=== PATIENT | female | born 1965 | race African-American/Black ===

== ENCOUNTER → 2019-04-30 15:11 | Outpatient (CLI) | payer OTHER, SELFPAY ==
--- NOTE | ~2019-04-30 | XR_ITS ---
EXAMINATION: XR knee RT 3V DATE: 04/30/2019 15:35 INDICATION: Right knee pain TECHNIQUE: Three views of the right knee were obtained. COMPARISON: None. FINDINGS: There is subtle lateral subluxation of the patella. No fracture is identified. There is mil d tricompartmental osteoarthritis. No joint effusion/synovitis. Soft tissues are unremarkable. IMPRESSION: 1. Mild osteoarthritis without acute abnormality. Reviewed, dictated and finalized at location A.
--- NOTE | ~2019-04-30 | XR_ITS ---
EXAMINATION: XR knee LT 3V DATE: 04/30/2019 15:35 INDICATION: Left knee pain. TECHNIQUE: 3 views of left knee were obtained. COMPARISON: None. FINDINGS: There is lateral subluxation of patella. No fracture. There is mild tricompartmental osteoa rthritis. No knee joint effusion. IMPRESSION: 1. Mild left knee osteoarthritis. Reviewed, dictated and finalized at location A.
== END ==
PROVIDERS: PCP Family Medicine; Visit Provider Physician Assistant
DX: M17.0 Bilateral primary osteoarthritis of knee (principal)
CPT/HCPCS: 73562

== ENCOUNTER → 2020-09-08 17:50 | Outpatient (CLI) | payer OTHER, SELFPAY ==
--- NOTE | ~2020-09-08 | MM_ITS ---
EXAMINATION: MM screening betty BI w varsha HISTORY: Screening TECHNIQUE: Craniocaudal and mediolateral oblique 3-D tomosynthesis images were obtained and synthetic 2-D images were generated. CAD analysis was submitted and interpreted. COMPARISON: Comparison to multiple prior studies sequentially, with oldest reviewed study dated 01/10. BREAST PARENCHYMAL COMPOSITION: The breasts are almost entirely fatty. FINDINGS: There is no evidence of suspicious mass, calcification, or architectural distortion to sugg est malignancy in either breast. There has been no suspicious interval change. IMPRESSION: 1. No mammographic evidence of malignancy. 2. Recommend routine screening mammography in one year. BI-RADS Category 1: Negative Reviewed, dictated and finalized at location A.
--- NOTE | ~2020-09-08 | DEXA_ITS ---
Bone Density Report Name: April Gonzalez Age: 55 Sex: Female Ethnicity: White Date of : 1965 Indication: postmenopausal; screening for osteoporosis; height loss; Referring Provider: Asia Chandler Study: Bone densitometry was performed. Exam Date: September 08, 2020 Accession number: [id number] Bone Density: Region BMD T-score Z-score Classification AP Spine (L1-L4) 1.321 2.5 3.6 Normal Femoral Neck (Left) 1.019 1.5 2.6 Normal Total Hip (Left) 1.078 1.1 1.8 Normal Femoral Neck (Right) 0.993 1.3 2.4 Normal Total Hip (Right) 1.043 0.8 1.5 Normal Total Hip Mean 1.061 1.0 1.7 Normal World Health Organization criteria for BMD impression classify patients as: Normal (T-score at or above -1.0), Osteopenia (T-score between -1.0 and -2.5), or Osteoporosis (T-score at or below -2.5). 10-year Fracture Risk: FRAX not reported because: All T-scores for Spine Total, Hip Total, Femoral Neck at or above -1.0 Clinical Information Provided by Patient: Patient maximum height was 68.5 Menopause Age: 50 Drinks caffeinated beverages Onset of menses at age 12 Number of children 3 Impression: The patient has normal bone mass. Discussion: BONE DENSITY IS ABOVE THE MINIMUM DESIRABLE LEVEL AT ALL SKELETAL SITES TESTED. This patient?s bone mineral density is above the minimum desirable level (T-score -1.0 or better) at all sites measured. The patient should follow a healthful lifestyle (good nutrition with adequate calcium and vitamin D, and appropriate weight-bearing exercise). Follow-Up: Consider repeating this study in 5 years or sooner if there is some new clinical indication. Reported by: CORY on 09/08/2020 7:06:00 PM. Reviewed, dictated and finalized at location AMagda VENEGAS
== END ==
PROVIDERS: PCP Family Medicine; Visit Provider Physician Assistant
DX: Z12.31 Encounter for screening mammogram for malignant neoplasm of breast (principal); Z78.0 Asymptomatic menopausal state
CPT/HCPCS: 77063; 77067; 77080

== ENCOUNTER 2020-10-10 17:00 | Outpatient (RCR) | payer OTHER, SELFPAY ==
--- NOTE | 2020-09-19 11:14 | PTOPEVAL ---
Thank you for referring April Gonzalez to [facility][Note 3].? The patient is scheduled to be seen for therapy?2 x/week for 8 weeks. Please review, sign, date and return this plan of care MARVIN. I agree with and certify that the following plan of care is medically necessary. Referring Physician Date Attending Provider: TERRY Damian Diagnosis love knee pain Onset 2019 Additional Evaluation Detail She has received previous therapy in 2019. She is riding a bike at home for 1 hr. No other exercises performed. She is a teacher at [employer]. She has increased pain with standing task. x-ray: right knee reveal moderate to severe lateral compartment DJD with osteophyte formation and valgus deformity. Mild to moderate medial compartment DJD with osteophyte formation and mild patellofemoral compartment DJD noted. Subjective Information She is limited with household Query Text:As Reported By Patient/ chores due to limited ability Family to perform lifting and squating. She has difficulty with transfers from all surfaces. She c/o difficulty with walking, negotiating steps, prolonged standing. She also c /o back stiffness causing increased difficulty with transfers. Reports she has a history of falls due to right leg giving out with activities. She recently received an injection in her right knee. Diagnostic Tests X-Rays For This Problem Yes Previous Treatments Previous Treatments For This Problem yes for PT and chiropractor care Pain Assessment Self Report Pain Assessment Left Knee(s) Reported Pain Level 1 Pain Description Sharp Pain Frequency Chronic Lowest Pain Intensity 1 Greatest Pain Intensity 3 Pain Aggravating Factors ADL's,Bending,Exercise/ Activity,Lifting,Prolonged Position,Stair Climbing,
--- NOTE | 2020-10-12 07:47 | PCPTNOTE ---
Patient called & cancelled scheduled appointment this date due to work schedule. She also cancelled her re-eval visit next week.
--- NOTE | 2020-11-06 09:25 | PCPTNOTE ---
Admitting Provider: Attending Provider: TERRY Damian Patient:April Gonzalez Date of :1965 Discharge Note Patient has not returned for any further treatments since 10/10/2020, therefore she will be discharged at this time. Patient?s initial visit was on 09/19/2020 09:30 and she had a total of 6 visits. The goals have been not met at this time. Thank you for referring this patient to [facility]. Please review, sign, date and return this discharge summary MARVIN. I have been updated about the patient's current status and I agree with discharge from the above service at this time. Referring Physician Date
== END 2020-11-06 16:49 | disposition home or self-care (01) ==
LOC: ANHPT 17:00
PROVIDERS: PCP Family Medicine; Visit Provider Nurse Practitioner Family
DX: M17.0 Bilateral primary osteoarthritis of knee (principal); M25.561 Pain in right knee; M25.562 Pain in left knee; M54.31 Sciatica, right side
CPT/HCPCS: 97014; 97110; 97112; 97162; 97530; G0283

== ENCOUNTER → 2020-12-19 08:23 | Outpatient (CLI) | payer OTHER, SELFPAY ==
--- NOTE | ~2020-12-19 | MR_ITS ---
EXAMINATION: MR lumbar spine wo con DATE: 12/19/2020 09:05 INDICATION: Low back pain. TECHNIQUE: Magnetic resonance imaging (MRI) of the lumbar spine was performed without intravenous con trast. Sequences included sagittal T2-weighted FSE, sagittal T2-weighted FS FSE, sagittal T1-weighted FSE, and axial T2-weighted FSE. COMPARISON: CT abdomen and pelvis 08/02/2011 FINDINGS: There is 9 degrees dextrocurvature of thoracolumbar spine. There is mild chronic anterior w edging of T11 and T12 vertebral bodies. There is severely decreased disc height at T11-T12. The dista l spinal cord signal intensity is normal. The conus medullaris is at L1. Partially visualized are hem angiomas in the liver. There is a chronic 2.1 m mass in right adrenal gland, likely an adenoma. The f ollowing disc levels are specifically discussed: T11-T12: The disc is bulging. There is moderate right and mild left facet joint osteoarthritis. There is mild bilateral neural foraminal stenosis. There is mild central canal stenosis. T12-L1: The disc does not extend beyond the endplate margin. There is mild right facet joint osteoart hritis. There is no neural foraminal stenosis. There is no central canal stenosis. L1-L2: The disc does not extend beyond the endplate margin. There is severe bilateral facet joint ost eoarthritis. There is no neural foraminal stenosis. There is no central canal stenosis. L2-L3: The disc does not extend beyond the endplate margin. There is severe bilateral facet joint ost eoarthritis. There is mild right neural foraminal stenosis. There is no central canal stenosis. L3-L4: The disc is bulging. There is severe bilateral facet joint osteoarthritis. There is mild bilat eral neural foraminal stenosis. There is no central canal stenosis. L4-L5: The disc is bulging and has an annular fissure. There is severe bilateral facet joint osteoart hritis. There is mild bilateral neural foraminal stenosis. There is mild central canal stenosis. L5-S1: There is a right foraminal protrusion. There is severe bilateral facet joint osteoarthritis. T here is moderate right and mild left neural foraminal stenosis. There is no central canal stenosis. IMPRESSION: 1. Mild lumbar spondylosis and severe lower thoracic spondylosis. Reviewed, dictated and finalized at location A. [employer]
== END ==
PROVIDERS: PCP Family Medicine; Visit Provider Nurse Practitioner Family
DX: M47.815 Spondylosis without myelopathy or radiculopathy, thoracolumbar region (principal); M48.05 Spinal stenosis, thoracolumbar region; M47.817 Spondylosis without myelopathy or radiculopathy, lumbosacral region; M48.07 Spinal stenosis, lumbosacral region
CPT/HCPCS: 72148

== ENCOUNTER 2021-01-26 16:40 | Outpatient (CLI) | payer OTHER, SELFPAY ==
--- NOTE | ~2021-01-26 | US_ITS ---
EXAMINATION: US thyroid DATE: 01/26/2021 17:24 INDICATION: Nontoxic multinodular goiter. TECHNIQUE: Multiple ultrasound images of the thyroid were obtained. COMPARISON: Ultrasound 07/24/2018, 04/11/2015, 09/05/17 FINDINGS: The right thyroid lobe measures 5.0 x 2.0 x 2.1 cm. The left thyroid lobe measures 5.3 x 1.9 x 2.4 c m. The thyroid demonstrates heterogeneous echogenicity. In the right thyroid lobe, there is an 8 mm p redominantly cystic nodule (TI-RADS TR1). In the right thyroid lobe, there is a 1.7 cm solid, hypoech oic, czzmh-kyip-crmj nodule with ill-defined margin without echogenic foci (TR4). In the left thyroid lobe, there is a 2.5 cm solid, hypoechoic, jhhlf-mbza-hxax nodule with ill-defined margin without ec hogenic foci (TR4) that demonstrated benign pathology at fine-needle aspiration on 12/22/2017. In the left thyroid lobe, there is a 2.1 cm mixed cystic and solid, hypoechoic, gckva-dcun-amnn nodule with lobular margin without echogenic foci (TR4). IMPRESSION: 1. Multinodular goiter, stable from 09/05/2017 considering differences in technique. Consider thyroid ultrasound in 2 years. Reviewed, dictated and finalized at location A. [employer] IMPRESSION: 1. Multinodular goiter, stable from 09/05/2017 considering differences in techni que. Consider thyroid ultrasound in 2 years.
== END 2021-01-26 16:41 | disposition home or self-care (01) ==
PROVIDERS: PCP Family Medicine; Visit Provider Family Medicine
DX: E04.2 Nontoxic multinodular goiter (principal)
CPT/HCPCS: 76536

== ENCOUNTER → 2021-09-07 08:57 | Outpatient (CLI) | payer SELFPAY ==
--- NOTE | ~2021-09-07 | MR_ITS ---
EXAMINATION: MR abdomen wo/w con INDICATION: Liver lesions TECHNIQUE: Coronal SSFSE ARC, WATER:coronal LAVA-FLEX, Coronal 2D FIESTA FatSat, Axial SSFSE BH ARC, Axial 3D DualEcho BH, Axial SSFSE-IR, Axial DWI b=500, Axial 2D FIESTA FatSat, pre and dynamic postco ntrast Axial LAVA ARC, postcontrast Coronal In and Opposed phase LAVA FLEX COMPARISON: CT, 08/02/2011 CONTRAST: Multihance, 20 cc FINDINGS: There are at least five T1 hypointense, T2 hyperintense masses of the liver which demonstra te interrupted peripheral nodular enhancement with gradual centripetal filling on progressive postcon trast images, consistent with hemangiomas. The largest is a 7.9 x 6.0 cm mass in liver segment VIII. There are a few small flash filling hemangiomas. No suspicious liver mass is identified. The spleen, pancreas, gallbladder, and left adrenal gland are normal. There is a 2 cm adenoma of the right adrena l gland. The kidneys are unremarkable. There are no pathologically enlarged abdominal lymph nodes. Th ere are no dilated loops of bowel. IMPRESSION: 2. Multiple liver hemangiomas. Reviewed, dictated and finalized at location L.
[2021-09-13 11:10] LABS: Estimated Glomerular Filt Rate > 60
== END ==
PROVIDERS: PCP Family Medicine; Visit Provider Nurse Practitioner
DX: D18.03 Hemangioma of intra-abdominal structures (principal)
CPT/HCPCS: 99199; 36415; 74183; 82565; A9577

== ENCOUNTER 2022-09-02 12:52 | Outpatient (CLI) | payer OTHER, SELFPAY ==
--- NOTE | 2022-09-02 12:56 | ECHO_ITS ---
Patient Info Name: April Gonzalez Age: 57 years : 1965 Gender: Female Ht: 68 in Wt: 232 lbs BSA: 2.29 m2 HR: 80 bpm BP: 133 / 92 mmHg Heart Rhythm: Sinus Rhythm Technical Quality: Good Exam Date: 09/02/2022 1:13 PM Exam Location: [facility] Patient Status: Outpatient Admit Date: 09/02/2022 Staff Ordering Physician: Jaylin Ortiz PA-C Hand Ii Cutter: Kathy Rojas RDCS Attending Provider: Jaylin Ortiz PA-C Referring Physician: Diana AARON; Exam Type: CA echo doppler color flow Study Info Indications R01.1 - Cardiac murmur, unspecified Complete two-dimensional, color flow and Doppler transthoracic echocardiogram is performed. Summary 1. Complete two-dimensional, color flow and Doppler transthoracic echocardiogram is performed. 2. Left ventricular chamber dimension is normal. 3. Left ventricular systolic function is normal, estimated at 60-65%. 4. The left ventricular diastolic function is grade II diastolic dysfunction. 5. E/e' 10 is mildly elevated. 6. Left atrial chamber dimension is mildly enlarged. 7. There is moderate aortic valve sclerosis. 8. There is moderate to severe aortic valve stenosis with a peak velocity of 314 cm/s, mean gradient of 19 mmHg, and aortic valve area of 0.9 cm2. 9. There is mild aortic valve regurgitation. 10. There is trace mitral valve regurgitation. 11. No pulmonary hypertension, estimated pulmonary arterial systolic pressure is 28 mmHg. Left Ventricle E/e' 10 is mildly elevated. Left ventricular chamber dimension is normal. Left ventricular systolic function is normal, estimated at 60-65%. The left ventricular diastolic function is grade II diastolic dysfunction. Right Ventricle Right ventricular systolic function is normal and with normal TAPSE 2.0 cm. Right ventricular chamber dimension is normal. Left Atria Left atrial chamber dimension is mildly enlarged. Right Atria Right atrial chamber dimension is normal. Aortic Valve The aortic valve is trileaflet. There is moderate aortic valve sclerosis. There is moderate to severe aortic valve stenosis with a peak velocity of 314 cm/s, mean gradient of 19 mmHg, and aortic valve area of 0.9 cm2. There is mild aortic valve regurgitation. Pulmonic Valve There is no pulmonic regurgitation. Mitral Valve There is no mitral valve stenosis. There is trace mitral valve regurgitation. Tricuspid Valve There is no tricuspid valve regurgitation. No pulmonary hypertension, estimated pulmonary arterial systolic pressure is 28 mmHg. Pericardium/Pleural There is no pericardial effusion. Inferior Vena Cava Normal inferior vena cava with >50% collapse upon inspiration consistent with normal right atrial pressure, 5 mmHg. Aorta The aortic root size at the sinus of Valsalva is normal. Left Ventricular Outflow Tract Name Value Normal LVOT 2D LVOT Diameter 2.0 cm LVOT Doppler LVOT Peak Gradient 3 mmHg LVOT Mean Gradient 1 mmHg LVOT VTI 19 cm LVOT VTI/AV VTI Ratio 0.3 LVOT Stroke Volume 56 ml LVOT CO 3.6 l/min
== END 2022-09-02 12:53 | disposition home or self-care (01) ==
LOC: ANHCARD 12:53
PROVIDERS: PCP Family Medicine; Visit Provider Physician Assistant Medical
DX: R01.1 Cardiac murmur, unspecified (principal); I35.1 Nonrheumatic aortic (valve) insufficiency; I35.0 Nonrheumatic aortic (valve) stenosis
CPT/HCPCS: 93306

== ENCOUNTER 2022-09-12 08:00 | Outpatient (NON) | payer OTHER, SELFPAY | END 2022-09-12 08:01 | disposition home or self-care (01) | PROVIDERS: PCP Family Medicine; Visit Provider Internal Medicine Gastroenterology | DX: Z12.11 Encounter for screening for malignant neoplasm of colon (principal); D12.3 Benign neoplasm of transverse colon | CPT/HCPCS: 88305 ==

== ENCOUNTER 2022-09-12 10:00 | Day surgery (SDC) | payer OTHER, SELFPAY ==
[2022-09-03 10:59] VITALS: BMI 35.2
[2022-09-12 10:42] VITALS: BP 140/98; PULSE 94; RESP 16; TEMP 36.8; O2SAT 99
[2022-09-12] MEDS: LACTATED RINGERS 1,000 ML 150 ML IV CONT (10:51)
--- NOTE | 2022-09-12 10:55 | WPDANESEPPF ---
Anes - Initial Pre Proc Eval Procedure: Operation Date: 09/12/22 12:00 Proposed Procedures p Screening Colonoscopy - Simeon Noel MD Date/Time: 09/12/22 10:55 Surgeon: Simeon Noel MD Pre Op Diagnosis: History of Colon Polyps Patient Data Age: 57 Gender: F Height: 1.73 m Weight: 107 kg Last Vital Signs Temp 36.8 C 09/12/22 10:42 Pulse 94 09/12/22 10:42 Resp 16 09/12/22 10:42 BP 140/98 H 09/12/22 10:42 Pulse Ox 99 09/12/22 10:42 O2 Del Method Room Air 09/12/22 10:42 Allergies Allergy/AdvReac Type Severity Reaction Status Date / Time No Known Allergies Allergy Verified 09/03/22 10:57 Home Medications Medication Instructions Recorded Confirmed Type tumeric 100 mg-kaci 150 mg-olive 1 cap PO DAILY 08/21/21 09/12/22 History 50 mg-oreg 150 mg-caprylate capsule biotin 5 mg capsule 5 mg PO DAILY 06/17/22 09/12/22 History multivitamin 1 tablet PO DAILY 06/17/22 09/12/22 History atorvastatin 10 mg tablet 10 mg PO DAILY #90 tabs 09/02/22 09/12/22 Rx ergocalciferol (vitamin D2) 1,250 1,250 mcg PO WEEKLY #4 caps 09/02/22 09/12/22 Rx mcg (50,000 unit) capsule Patient hx anesthesia problems: none Family hx anesthesia problems: none Results Review: All pre-operative results and documents have been reviewed as part of the pre-operative evaluation. [facility] Past Medical History Medical History Abnormal liver diagnostic imaging Anemia Arthritis Degenerative joint disease of knee Hepatic hemangioma History of miscarriage History of postoperative complication of surgical procedure History of UTI HLD (hyperlipidemia) Left knee pain Low back pain Lower extremity weakness Lumbar spine pain Multinodular goiter Normal colonoscopy (~07/06/15) Right knee pain SOB (shortness of breath) Spondylosis of lumbar spine Wears glasses Surgical History Surgical History H/O colposcopy with cervical biopsy H/O foot surgery S/P dilation and curettage Family History Family History Other Alcoholism Depression Family history of arthritis Family history of obesity High cholesterol Malignant neoplasm of prostate Thyroid disorder Social History Social History Smoking status: Never smoker Second hand tobacco smoke exposure: No Alcohol intake: never Substance use: never Substance use type: does not use Lack of Transportation: No Lack of Food: Never True Current Housing: I Have Housing Concerned About Future Housing: No Difficulty Paying Gas/Electric Bills: No Difficulty Paying for Meds: No Currently Unemployed: No Education: Master's Degree or Higher Difficulty w/ Childcare or Family Care: No Gender identity (if verbalized by the patient): Male Spiritual care concerns: No Anes - Eval Final PreProcedure Day of Procedure 09/12/22 10:55 Patient weight: obese Heart: regular rate and rhythm and murmur (II/ SM) Lungs: clear to auscultation Airway: Mallampati scale class II Neurological: alert and oriented Last oral intake: >/= 8 hours ASA classification: III Emergent: no Anesthetic plan: proceed Anesthesia type and monitoring: general GIVS and standard monitoring Results Review: All pre-operative results and documents have been reviewed as part of the pre-operative evaluation. Informed Consent: The patient's anesthetic plan and its attendant risks and benefits were discussed with the patient/family/POA. Questions were solicited and answers provided to the satisfaction of the patient/family/POA.
--- NOTE | 2022-09-12 11:06 | PM.HPGS ---
History of Present Illness History of Present Illness Consent: Risks, benefits, and alternatives have been discussed and questions answered. Patient agrees to proceed with procedure. Chief complaint: History of Colon Polyps Narrative: April Gonzalez is a 57 year old female with colon polyp in 2016 Review of Systems Constitutional: Constitutional: Denies headache(s) and Denies weakness Eyes: Eyes: Denies blurry vision ENT: Reports Normal hearing present, Denies headache(s) and Denies neck pain Cardiovascular: Cardiovascular: Denies chest pain and Denies dyspnea Respiratory: Respiratory: Denies dyspnea Gastrointestinal: Gastrointestinal: Reports no additional gastrointestinal complaints Genitourinary: Genitourinary: Denies dysuria Musculoskeletal: Musculoskeletal: Denies neck pain Integumentary/Breasts: Skin/Breast: Denies dry skin Neurologic: Reports Normal hearing present, Denies headache(s) and Denies weakness Psychiatric: Psychiatric: Denies anxiety Endocrine: Endocrine: Denies change in body appearance Hematologic/Lymphatic: Hematologic/Lymphatic: Denies easy bleeding Allergic/Immunologic: Allergic/Immunologic: Denies urticaria PMFSH Past Medical History Medical History (Updated 09/12/22 @ 11:07 by Simeon Noel MD) Abnormal liver diagnostic imaging Anemia Arthritis Colon cancer screening Degenerative joint disease of knee Hepatic hemangioma History of miscarriage History of postoperative complication of surgical procedure History of UTI HLD (hyperlipidemia) Left knee pain Low back pain Lower extremity weakness Lumbar spine pain Multinodular goiter Normal colonoscopy (~07/06/15) Right knee pain SOB (shortness of breath) Spondylosis of lumbar spine Wears glasses Surgical History Surgical History H/O colposcopy with cervical biopsy H/O foot surgery S/P dilation and curettage Family History Family History Other Alcoholism Depression Family history of arthritis Family history of obesity High cholesterol Malignant neoplasm of prostate Thyroid disorder Social History Social History Smoking status: Never smoker Second hand tobacco smoke exposure: No Alcohol intake: never Substance use: never Substance use type: does not use Lack of Transportation: No Lack of Food: Never True Current Housing: I Have Housing Concerned About Future Housing: No Difficulty Paying Gas/Electric Bills: No Difficulty Paying for Meds: No Currently Unemployed: No Education: Master's Degree or Higher Difficulty w/ Childcare or Family Care: No Gender identity (if verbalized by the patient): Male Spiritual care concerns: No Meds Home Medications and Allergies Home Medications Medication Instructions Recorded Confirmed Type tumeric 100 mg-kcai 150 mg-olive 1 cap PO DAILY 08/21/21 09/12/22 History 50 mg-oreg 150 mg-caprylate capsule biotin 5 mg capsule 5 mg PO DAILY 06/17/22 09/12/22 History multivitamin 1 tablet PO DAILY 06/17/22 09/12/22 History atorvastatin 10 mg tablet 10 mg PO DAILY #90 tabs 09/02/22 09/12/22 Rx ergocalciferol (vitamin D2) 1,250 1,250 mcg PO WEEKLY #4 caps 09/02/22 09/12/22 Rx mcg (50,000 unit) capsule Allergies Allergy/AdvReac Type Severity Reaction Status Date / Time No Known Allergies Allergy Verified 09/03/22 10:57 Vital Signs Vital Signs - 24 hr 09/12/22 10:42 Temperature 98.2 F Pulse Rate 94 Respiratory Rate 16 Blood Pressure 140/98 H Pulse Oximetry 99 Oxygen Delivery Room Air Exam Const: General: comfortable and no acute distress HENMT: Face/Nose/Sinus: Normal nares present Eyes: General: appearance normal, both eyes and all related structures Neck: Neck: no JVD Resp: Auscultation: clear to auscultation bilaterally Ca
[2022-09-12 11:25] VITALS: BP 108/72; PULSE 79; RESP 16; O2SAT 100
--- NOTE | 2022-09-12 11:31 | WPDANESPN ---
Anes - Prog Note Post-Op Date/Time: 09/12/22 11:31 Cardiovascular status: normal Respiratory status: normal Airway patency: baseline Mental status: baseline Post-Op hydration status: normal Vital Signs: Last Vital Signs Temp 36.8 C 09/12/22 10:42 Pulse 94 09/12/22 10:42 Resp 16 09/12/22 10:42 BP 140/98 H 09/12/22 10:42 Pulse Ox 99 09/12/22 10:42 O2 Del Method Room Air 09/12/22 10:42 Pain Score (VAS): 0/10 I/O: Intake & Output 09/11/22 09/12/22 09/12/22 23:59 07:59 15:59 Intake Total 400 Balance 400 Patient Feedback: Patient satisfied with anesthetic care.
[2022-09-12 11:35] VITALS: BP 106/78; PULSE 76; RESP 14; O2SAT 100
[2022-09-12 11:45] VITALS: BP 140/90; PULSE 69; RESP 14; O2SAT 100
== END 2022-09-12 12:02 | disposition home or self-care (01) ==
PROVIDERS: PCP Family Medicine; Visit Provider Internal Medicine Gastroenterology
PROC: 0DJD8ZZ Inspection of Lower Intestinal Tract, Via Natural or Artificial Opening Endoscopic (ICD-10-PCS; CPT 45378; principal; 2022-09-12 12:00)
DX: Z12.11 Encounter for screening for malignant neoplasm of colon (principal); D12.3 Benign neoplasm of transverse colon
CPT/HCPCS: 45380

== ENCOUNTER 2022-09-17 11:01 | Outpatient (CLI) | payer OTHER, SELFPAY ==
--- NOTE | 2022-09-17 11:21 | ECG_ITS ---
Measurements Intervals [place] Rate: 69 P: 29 SC: 123 QRS: -1 QRSD: 86 T: -9 QT: 383 QTc: 411 Interpretive Statements SINUS RHYTHM NONSPECIFIC T-WAVE ABNORMALITY BORDERLINE ECG NO PREVIOUS ECG AVAILABLE FOR COMPARISON Electronically Signed On 09-17-2022 13:26:41 CDT by Danielito Moore M.D.
== END 2022-09-17 11:02 | disposition home or self-care (01) ==
LOC: ANHCARD 11:04
PROVIDERS: PCP Family Medicine; Visit Provider Internal Medicine Cardiovascular Disease
DX: I35.0 Nonrheumatic aortic (valve) stenosis (principal)
CPT/HCPCS: 93005

== ENCOUNTER → 2022-09-19 13:09 | Outpatient (CLI) | payer OTHER, SELFPAY ==
--- NOTE | ~2022-09-19 | MM_ITS ---
EXAMINATION: MM screening [facility] BI w varsha HISTORY: Screening mammogram TECHNIQUE: Craniocaudal and mediolateral oblique 3-D tomosynthesis images were obtained and synthetic 2-D images were generated. CAD analysis was submitted and interpreted. COMPARISON: 09/08/2020, 12/30/2018, 04/11/2015 BREAST PARENCHYMAL COMPOSITION: The breasts are almost entirely fatty. FINDINGS: No suspicious mass, calcification, or architectural distortion are identified in either bryan ast to suggest malignancy. There has been no suspicious interval change. IMPRESSION: 1. No mammographic evidence of malignancy. 2. Recommend routine screening mammography in one year. BI-RADS Category 1: Negative Reviewed, dictated and finalized at location A.
== END ==
PROVIDERS: PCP Family Medicine; Visit Provider Obstetrics & Gynecology
DX: Z12.31 Encounter for screening mammogram for malignant neoplasm of breast (principal)
CPT/HCPCS: 77063; 77067

== ENCOUNTER 2022-09-28 10:29 | Outpatient (CLI) | payer OTHER, SELFPAY ==
--- NOTE | ~2022-09-28 | MR_ITS ---
EXAMINATION: MR abdomen wo/w con INDICATION: Hemangioma of intra-abdominal structures TECHNIQUE: Coronal SSFSE ARC, WATER:coronal LAVA-FLEX, Coronal 2D FIESTA FatSat, Axial SSFSE BH ARC, Axial 3D DualEcho BH, Axial SSFSE-IR, Axial DWI b=500, Axial 2D FIESTA FatSat, pre and dynamic postco ntrast Axial LAVA ARC, postcontrast Coronal In and Opposed phase LAVA FLEX COMPARISON: 09/07/2021 CONTRAST: Multihance, 20 cc FINDINGS: Multiple hemangiomas of the liver, both typical and flash filling, are again seen. The larg est in liver segment VIII now measures 8.6 x 6.3 cm, previously 7.9 x 6.0 cm. No suspicious liver mas s is identified. The spleen, pancreas, gallbladder, and left adrenal gland are normal. There is a 2 c m adenoma of the right adrenal gland. The kidneys are unremarkable. There are no pathologically enlar ged abdominal lymph nodes. No dilated loops of bowel are evident. IMPRESSION: 1. Multiple liver hemangiomas, the largest of which demonstrate slight increase in size. Reviewed, dictated and finalized at location F.
== END 2022-09-28 10:30 | disposition home or self-care (01) ==
LOC: ANHIMG 10:32
PROVIDERS: PCP Family Medicine; Visit Provider Internal Medicine Gastroenterology
DX: D18.03 Hemangioma of intra-abdominal structures (principal); R93.2 Abnormal findings on diagnostic imaging of liver and biliary tract
CPT/HCPCS: 74183; A9577

== ENCOUNTER 2022-10-21 10:57 | Outpatient (CLI) | payer OTHER, SELFPAY ==
[2022-10-21 20:09] LABS: Influenza A QL RT-PCR Negative (Negative); Influenza B QL RT-PCR Negative (Negative); RSV RNA, RT-PCR Negative (Negative); SARS-CoV-2 RNA PCR Positive (Negative)
== END 2022-10-21 10:58 | disposition home or self-care (01) ==
LOC: ANHGOSHLAB 11:02
PROVIDERS: PCP Family Medicine; Visit Provider Physician Assistant
DX: U07.1 COVID-19 (principal)
CPT/HCPCS: 87637

== ENCOUNTER 2023-09-15 12:46 | Outpatient (CLI) | payer OTHER, SELFPAY ==
--- NOTE | 2023-09-15 12:57 | ECHO_ITS ---
Patient Info Name: April Gonzalez Age: 58 years : 1965 Gender: Female Ht: 68 in Wt: 249 lbs BSA: 2.38 m2 HR: 81 bpm BP: 134 / 90 mmHg Technical Quality: Good Exam Date: 09/15/2023 1:03 PM Exam Location: Echo Lab Patient Status: Outpatient Admit Date: 09/15/2023 Staff Ordering Physician: Nahun Cobos DO Social Problems Specialist: Alicia Wallace RDCS Attending Provider: Nahun Cobos DO Referring Physician: Papito DSOUZA; Exam Type: CA echo doppler color flow Study Info Indications I35.0 - Nonrheumatic aortic (valve) stenosis Complete two-dimensional, color flow and Doppler transthoracic echocardiogram is performed. Strain analysis performed. Summary 1. Complete two-dimensional, color flow and Doppler transthoracic echocardiogram is performed. 2. Left ventricular chamber dimension is normal. 3. Left ventricular systolic function is hyperdynamic, estimated at >70%. 4. There is mild concentric increased left ventricular wall thickness. 5. The left ventricular diastolic function is grade II diastolic dysfunction. 6. E/e' 11 is mildly elevated. 7. Left atrial chamber dimension is mildly enlarged. 8. There is moderate aortic valve sclerosis. 9. There is moderate aortic valve stenosis with a peak velocity of 345 cm/s, mean gradient of 22 mmHg, and aortic valve area of 1.2 cm2. 10. There is mild aortic valve regurgitation. 11. No pulmonary hypertension, estimated pulmonary arterial systolic pressure is 32 mmHg. Left Ventricle E/e' 11 is mildly elevated. Left ventricular chamber dimension is normal. Left ventricular systolic function is hyperdynamic, estimated at >70%. There is mild concentric increased left ventricular wall thickness. The left ventricular diastolic function is grade II diastolic dysfunction. Right Ventricle Right ventricular systolic function is normal and with normal TAPSE 2.5 cm. Right ventricular chamber dimension is normal. Left Atria Left atrial chamber dimension is mildly enlarged. Right Atria Right atrial chamber dimension is normal. Aortic Valve The aortic valve is possibly bicuspid. There is moderate aortic valve sclerosis. There is moderate aortic valve stenosis with a peak velocity of 345 cm/s, mean gradient of 22 mmHg, and aortic valve area of 1.2 cm2. There is mild aortic valve regurgitation. Pulmonic Valve There is no pulmonic regurgitation. Mitral Valve There is no mitral valve stenosis. There is no mitral valve regurgitation. Tricuspid Valve There is no tricuspid valve regurgitation. No pulmonary hypertension, estimated pulmonary arterial systolic pressure is 32 mmHg. Pericardium/Pleural There is no pericardial effusion. Inferior Vena Cava Normal inferior vena cava with >50% collapse upon inspiration consistent with normal right atrial pressure, 5 mmHg. Aorta The aortic root size at the sinus of Valsalva is normal. Left Ventricular Outflow Tract Name Value Normal LVOT 2D LVOT Diameter 2.1 cm LVOT Doppler LVOT Peak Gradient 4 mmHg LVOT Mean Gradient 2 mmHg LVOT VTI 24 cm LVOT VTI/AV VTI Ratio 0.3 LVOT Stroke Volume 84 ml
== END 2023-09-15 12:47 | disposition home or self-care (01) ==
LOC: ANHCARD 12:47
PROVIDERS: PCP Family Medicine; Visit Provider Internal Medicine Cardiovascular Disease
DX: I35.0 Nonrheumatic aortic (valve) stenosis (principal); I35.8 Other nonrheumatic aortic valve disorders; I35.1 Nonrheumatic aortic (valve) insufficiency; I51.89 Other ill-defined heart diseases
CPT/HCPCS: 93306

== ENCOUNTER 2023-11-10 11:17 | Outpatient (CLI) | payer OTHER, SELFPAY ==
--- NOTE | ~2023-11-10 | US_ITS ---
US axilla RT 11/10/2023 11:31 Indication: Palpable right axillary abnormality Procedure: High-resolution Limited ultrasound of the right axilla Comparison: No prior studies for comparison. Findings: There is a normal-appearing superficial lymph node measuring 7 x 2 x 7 mm with echogenic hi lum. No additional masses are seen. Impression: 1: Normal superficial right axillary lymph node in the area of palpable concern measuring 7 mm. Reviewed, dictated and finalized at location B. Impression: 1: Normal superficial right axillary lymph node in the area of palpable concern measuring 7 mm.
== END 2023-11-10 11:18 | disposition home or self-care (01) ==
LOC: MICIMG 11:17
PROVIDERS: PCP Family Medicine; Visit Provider Student in an Organized Health Care Education/Training Program
DX: R59.0 Localized enlarged lymph nodes (principal)
CPT/HCPCS: 76882

== ENCOUNTER 2024-01-01 13:51 | Outpatient (CLI) | payer OTHER, SELFPAY ==
--- NOTE | ~2024-01-01 | MM_ITS ---
EXAMINATION: MM screening betty BI w varsha HISTORY: Screening mammogram TECHNIQUE: Craniocaudal and mediolateral oblique 3-D tomosynthesis images were obtained and synthetic 2-D images were generated. CAD analysis was submitted and interpreted. COMPARISON: 09/19/2022, 09/08/2020 BREAST PARENCHYMAL COMPOSITION:Not Dense. The breasts are almost entirely fatty FINDINGS: No suspicious mass, calcification, or architectural distortion are identified in either bryan ast to suggest malignancy. There has been no suspicious interval change. IMPRESSION: No mammographic evidence of malignancy. Recommend routine screening mammography in one year. BI-RADS Category 1: Negative Reviewed, dictated and finalized at location . CIATE BRAND MANAGER
== END 2024-01-01 13:52 | disposition home or self-care (01) ==
LOC: MICIMG 13:52
PROVIDERS: PCP Family Medicine; Visit Provider Physician Assistant Medical
DX: Z12.31 Encounter for screening mammogram for malignant neoplasm of breast (principal)
CPT/HCPCS: 77063; 77067

== ENCOUNTER 2024-06-14 07:56 | Outpatient (CLI) | payer OTHER, SELFPAY ==
--- NOTE | ~2024-06-14 | MR_ITS ---
EXAMINATION: MR abdomen wo/w con DATE: 06/14/2024 08:48 INDICATION: Hepatic hemangiomas TECHNIQUE: Magnetic resonance imaging (MRI) of the abdomen was performed without and with 20 mL Multi grant intravenous contrast. Sequences included coronal T2-weighted SS-FSE, coronal and axial FS 2D-F IESTA, axial STIR FSE, axial T2-weighted SS-FSE, axial T2-weighted FS SS-FSE, axial diffusion-weighte d SE, axial dual-echo T1-weighted FSPGR, and axial and coronal T1-weighted LAVA. Postcontrast axial T 1-weighted LAVA images were obtained in a time course. Postcontrast coronal T1-weighted LAVA images w ere obtained. COMPARISON: 09/28/2022 FINDINGS: Heart size is normal. No pericardial or pleural effusion. There are multiple cavernous hemangiomas sc attered throughout the liver characterized by increased T2 signal and peripheral discontiguous puddli ng of contrast which slowly fills in on delayed imaging. The 2 largest measure 8.9 x 7.1 cm the dome of the right hepatic lobe and 9.5 x 5.1 cm at the caudal aspect of the right hepatic lobe. Both are s lightly increased in size since the prior study. Gallbladder, spleen, left adrenal gland and bilatera l kidneys are normal. Minimal increase in size of a now 2.3 cm right adrenal adenoma with diagnostic signal dropout on opposed phase imaging. No significant change in a 4-5 mm T2 hyperintense nonenhanci ng cyst at the tail of the pancreas. Visualized portions of bowels are unremarkable including a jan l appendix. No pathologically enlarged abdominal or upper pelvic lymphadenopathy. Mild thoracolumbar dextrocurvature. T11 and L2 T1 hyperintense and fat saturating hemangiomas. Bone marrow signal is oth erwise normal throughout. IMPRESSION: 1. Multiple hepatic hemangiomas with continued mild increase in size of the 2 largest. 2. No interval change in a 4-5 mm simple appearing cystic lesion at the tail of the pancreas. Would r ecommend additional 2 year follow-up pre and postcontrast MRI. Reviewed, dictated and finalized at location A. IMPRESSION: 1. Multiple hepatic hemangiomas with continued mild increase in size of the 2 l argest. 2. No interval change in a 4-5 mm simple appearing cystic lesion at the tail of the pancreas. Would recommend additional 2 year follow-up pre and postcontrast MRI.
--- OUTSIDE RECORDS SUMMARY | 2024-06-14 08:05 | XMS_ITS | Clinical Summary ---
Author Organization [facility] Address [address] [place] [address] Phone Care Team Providers Care Coke Oven Patcher Name Role Phone Padmini Castano MD Primary Care Provider Allergies No known active allergies Medications atorvastatin (LIPITOR) 10 mg tablet Take 10 mg by mouth daily. Active ergocalciferol (VITAMIN D2) 50,000 unit capsule Take 50,000 Units by mouth. Active calcium carbonate/multiv itamin (MULTIVITAMIN-CA LCIUM CARB ORAL) Take by mouth. Active Active Problems No known active problems Family History Medical History Relation Name Comments High Cholesterol Brother Cancer Father prostate Heart Disease Maternal Grandmother High Cholesterol Mother Relation Name Status Comments Brother Father Maternal Grandmother Mother Social History Tobacco Use Types Packs/Day Years Used Date Smoking Tobacco: Never Smokeless Tobacco: Never Alcohol Use Standard Drinks/Week Comments Not Currently 0 (1 standard drink = 0.6 oz pur e alcohol) Comments Unknown Sex and Gender Information Value Date Recorded Sex Assigned at Not on file Legal Sex Female 11:37 AM VP BUSINESS DEVELOPMENT Gender Identity Not on file Sexual Orientation Not on file Last Filed Vital Signs Vital Sign Reading Time Taken Comments Blood Pressure 139/85 03/02/2021 10:55 AM VP BUSINESS DEVELOPMENT Pulse 79 03/02/2021 10:55 AM VP BUSINESS DEVELOPMENT Temperature 36.6 C (97.9 F) 03/02/2021 10:55 AM VP BUSINESS DEVELOPMENT Respiratory Rate - - Oxygen Saturation - - Inhaled Oxygen Concentration - - Weight 120.2 kg (265 lb) 03/02/2021 10:55 AM VP BUSINESS DEVELOPMENT Height 172.7 cm (5' 8 ) 03/02/2021 10:55 AM VP BUSINESS DEVELOPMENT Body Mass Index 40.29 03/02/2021 10:55 AM VP BUSINESS DEVELOPMENT Plan of Treatment Health Maintenance Due Date Last Done Comments DTAP/TDAP/TD VACCINES (1 - Tdap) 1984 HEPATITIS B VACCINES (1 of 3 - 19+ 3-dose series) 05/1984 HPV/Cotest (21-29) 1986 CERVICAL CANCER SCREENING 08/14/1995 HPV/Cotest (30-65) 08/14/1995 PAP SMEAR 08/14/1995 BREAST CANCER SCREENING 2005 COLORECTAL SCREENING 2010 Colorectal Cancer Screening 2010 FIT-DNA Q 3 years 2010 FIT/FOBT Q 1 year 2010 Flex Sig/CT Colonography Q 5 years 2010 ZOSTER VACCINE (1 of 2) 08/14/2015 INFLUENZA VACCINE (#1) 2023 Insurance Care Teams Coke Oven Patcher Relationship Specialty Start Date End Date Padmini Castano MD [address] [place] [address] PCP - General Family Practice 01/25/21
--- OUTSIDE RECORDS SUMMARY | 2024-06-14 08:05 | XMS_ITS | Clinical Summary ---
Author Organization [facility] Address [address] [place] [address] Care Team Providers Care Hard Metals Hand Engraver Name Role Phone Padmini Castano MD Primary Care Provider [phone] Source Comments [facility],non[facility] Affiliates and Associated Physician Practices is amultiple site organization consisting of ambulatory clinics and hospital sitesin [place], [place], [place] and [place]. This disclosure is being madepursuant to the Care Everywhere program and may not contain all information available regarding this patient. Last updated 17.[facility] Allergies No known active allergies Medications * Be aware that medications may not be up to date on this document. Alwaysverify current medications with the patient. Multiple Vitamin (MULTI VITAMIN PO) Active Solifenacin Succinate (VESICARE PO) Active ofloxacin (OCUFLOX) 0.3 % ophthalmic solution 1 to 2 gtt in both eye(s) q 2-4h while awake x 2 days. Then 1 to 2 gtt qid x 5 days 1 bottles 04/14/2018 Active Family History Medical History Relation Name Comments Cancer - Prostate Father Relation Name Status Comments Father Social History Tobacco Use Types Packs/Day Years Used Date Smoking Tobacco: Never Smokeless Tobacco: Never Comments No Sex and Gender Information Value Date Recorded Sex Assigned at Not on file Legal Sex Female 6:17 AM SWING DRIVER Gender Identity Not on file Sexual Orientation Not on file Last Filed Vital Signs Vital Sign Reading Time Taken Comments Blood Pressure 118/86 04/14/2018 5:33 PM SWING DRIVER Pulse 81 04/14/2018 5:33 PM SWING DRIVER Temperature 36.8 C (98.3 F) 04/14/2018 5:33 PM SWING DRIVER Respiratory Rate 16 04/14/2018 5:33 PM SWING DRIVER Oxygen Saturation 99% 04/14/2018 5:33 PM SWING DRIVER Inhaled Oxygen Concentration - - Weight 102.1 kg (225 lb) 04/14/2018 5:33 PM SWING DRIVER Height 172.7 cm (5' 8 ) 04/14/2018 5:33 PM SWING DRIVER Body Mass Index 34.21 04/14/2018 5:33 PM SWING DRIVER Plan of Treatment Health Maintenance Due Date Last Done Comments COLOGUARD (AGES 45-75) - COL ON CA SCREENING 1965 COLON MONITORING 1965 COLONOSCOPY - COLON CA SCREENING 1965 CT COLONOGRAPHY - COLON CA SCREENING 1965 Colorectal Cancer Screening 1965 FIT - COLON CA SCREENING 1965 FLEX SIG - COLON CA SCREENING 1965 LIPID TESTING 1965 MAMMOGRAM 1965 PAP SMEAR 1965 HIV SCREENING 1980 HEPATITIS C SCREENING 08/09/1983 DTAP/TDAP/TD VACCINES (1 - Tdap) 1984 HEPATITIS B VACCINE (1 of 3 - 19+ 3-dose series) 1984 PNEUMOCOCCAL VACCINE 50+ (1 of 1 - PCV) 08/14/2015 ZOSTER VACCINE (1 of 2) 08/14/2015 SCREENING FOR DIABETES 10/19/2017 COVID-19 VACCINE (1 - 2023-2 5 season) 2023 DEPRESSION SCREENING 02/11/2024 INFLUENZA VACCINE (Season Ended) 2024 HIB VACCINE Aged Out No longer eligi ble based on patient's age to complete this topic HPV VACCINE Aged Out No longer eligi ble based on patient's age to complete this topic MENINGOCOCCAL (Group B) VACC INE SHARED DECISION-MAKING Aged Out No longer eligibl e based on patient's age to complete this topic MENINGOCOCCAL GROUPS A/C/Y/W VACCINE Aged Out No longer eligible b ased on patient's age to complete this topic Insurance [facility] Member Subscriber Plan / Payer (Ef fective 2017-Present) Name:Liliane Cruz Relation to Subscriber:Self Name:Liliane Cruz Payer ID:[id number] ([employer]) Type:HMO Address: [place] [id number] [facility] Care Teams Hard Metals Hand Engraver Relationship Specialty Start Date End Date Padmini Castano MD [address] [place] [address] PCP - General Family Medicine 10/19/17
--- OUTSIDE RECORDS SUMMARY | 2024-06-14 08:05 | XMS_ITS | Clinical Summary ---
Author Organization [facility] Address [address], [address] [address] Phone Care Team Providers Care Linux Engineer Name Role Phone Padmini Castano MD Primary Care Provider [phone] Allergies No known active allergies Medications terbinafine (LAMISIL) 250 MG Tablet Take 250 mg by mouth daily. Active Family History Medical History Relation Name Comments Prostate Cancer Father Relation Name Status Comments Father Social History Tobacco Use Types Packs/Day Years Used Date Smoking Tobacco: Never Alcohol Use Standard Drinks/Week Comments Yes 0 (1 standard drink = 0.6 oz pur e alcohol) Comments Unknown Sex and Gender Information Value Date Recorded Sex Assigned at Not on file Legal Sex Female 4:12 PM TESTER REGULATOR Gender Identity Not on file Sexual Orientation Not on file Plan of Treatment Health Maintenance Due Date Last Done Comments Hepatitis C Virus (HCV) Screening 1965 Mammogram 1965 TdaP Immunization 1965 Hepatitis B Immunization (1 of 3 - 19+ 3-dose series) 1984 Pap Smear 1986 Cervical Cancer Screening (CCS) 08/14/1995 HPV/Cotest 08/14/1995 Cologuard 08/14/2015 Immunochemical Fecal Occult Blood 08/14/2015 Pneumococcal Immunization (5 0+ years) (1 of 1 - PCV) 08/14/2015 Zoster Immunization (1 of 2) 08/14/2015 Influenza Immunization (#1) 2023 SARS-COV-2 Immunization ( - season) 2023 Colonoscopy 07/05/2025 07/06/2015 Colorectal Cancer Screening 07/05/2025 Respiratory Syncytial Virus (RSV) Immunization (Adult) (1 - 1-dose 75+ series) 2040 07/06/2015 Meningococcal Immunization (ACWY) Aged Out No longer eligible based on patient's age to complete this topic Rotavirus Immunization Aged Out No lo nger eligible based on patient's age to complete this topic Procedures Procedure Name Priority Date/Time Associated Diagnosis Comments COLONOSCOPY Routine 07/06/2015 from Last 3 Months or Most Recently Relevant to Health Maintenance Results * COLONOSCOPY (07/06/2015) Emir Mirza DO PROCEDURE/MINOR SURGICAL ORDERA BLES Final Result from Last 3 Months or Most Recently Relevant to Health Maintenance Care Teams Linux Engineer Relationship Specialty Start Date End Date Padmini Castano MD [address] [place] [address] PCP - General Family Medicine 07/17/15
--- OUTSIDE RECORDS SUMMARY | 2024-06-14 08:05 | XMS_ITS | Referral Summary ---
Author Organization [facility] Address [address] [place] [address] Care Team Providers Care Campaign Fundraiser Name Role Phone Padmini Castano MD Primary Care Provider [phone] Christopher Thacker MD Unavailable Allergies No known active allergies Medications atorvastatin (LIPITOR) 10 mg tablet Take 1 tablet (10 mg total) by mouth daily 1 Active multivitamin tabletIndications:V itamin Deficiency Prevention Take 1 tablet by mouth Active turmeric root extract 500 mg capsule Take by mouth Active meloxicam (MOBIC) 15 mg tabletIndications:P rimary osteoarthritis of right knee,Primary osteoarthritis of left knee TAKE 1 TABLET(15 MG) BY MOUTH DAILY 30 tablet 1 5 Active Active Problems Problem Noted Date Diagnosed Date Primary osteoarthritis of right knee 07/31/2023 Right knee pain 07/31/2023 Primary osteoarthritis of left knee 07/31/2023 Left knee pain 07/31/2023 Bilateral primary osteoarthritis of knee 022 Weight loss counseling, encounter for 08/04/2019 Assessment & Plan (09/13/2019 1:20 PM CDT): Reviewed calorie restriction based on BMR as previously detailed. Reviewed recommendation/goal of >/= 150 minutes/week moderate-intensity aerobic exercise. Assessment & Plan (08/04/2019 12:55 PM CDT): Discussed that weight loss will require calorie deficit. Calculated basal metabolic rate and estimated total energy expenditure; discussed 500-1000 kcal/day deficit to lose 1-2 lb per week. Asked to keep detailed food diary for at least 1 week and bring to next visit. Discussed relatively small, although significant, role of exercise in weight loss; greater importance in weight maintenance as shown in Look Ahead study and National Weight Control Registry. Discussed recommendation/goal for 150 minutes per week moderate-intensity aerobic exercise. Class 3 severe obesity due t o excess calories without serious comorbidity with body mass index (BMI) of 40.0 to 44.9 in adult 08/04/2019 Assessment & Plan (09/13/2019 1:21 PM CDT): Obesity is improving with lifestyle modifications. Diet interventions: as noted. Regular aerobic exercise program discussed. Assessment & Plan (08/04/2019 12:58 PM CDT): Obesity is worsening. General weight loss/lifestyle modification strategies discussed (elicit support from others; identify saboteurs; non-food rewards, etc). Diet interventions: as noted. Informal exercise measures discussed, e.g. taking stairs instead of elevator. Regular aerobic exercise program discussed. More detailed recommendations pending review of labs, food record. Metabolic and nutritional disorder 08/04/2019 Assessment & Plan (09/13/2019 1:21 PM CDT): Continue low-carb (<150 g/day), low-glycemic diet. Assessment & Plan (08/04/2019 12:56 PM CDT): Discussed insulin resistance including effect on weight and risk for progression to diabetes. Recommended low-carb, low-glycemic diet; choose whole grains and avoid more highly processed carbohydrates. Discussed potential benefits of this w/r/t gut microbiome. Referred to ADA and [employer] [facility] websites for additional information on topics including glycemic index/carbohydrate choices, protein sources. Consider metformin, GLP-1 RA. Mixed stress and urge urinary incontinence 08/20 Assessment & Plan (08/04/2019 12:50 PM CDT): Discussed potential for improvement and/or reduced progression with weight loss. Non-toxic multinodular goiter 06/26/2013 Overview (05/17/2016): NONTOX MULTINODUL GOITER Social History Tobacco Use Types Packs/Day Years Used Date Smoking Tobacco: Never Smokeless Tobacco: Never Tobacco Cessation:Counseling Given: Not Answered Alcohol Use Standard Drinks/Week Comments No 0 (1 standard drink = 0.6 oz pur e alcohol) AUDIT-C Answer Date Recorded Q1: How often do you have a drink containing alcohol? Never 08/23/2021 Q2: How many drinks containi ng alcohol do you have on a typical day when you are drinking? Patient does not drink Q3: How often do you have si x or more drinks on one occasion? Never 08/23/2021 Exercise Vital Sign Answer Date Recorde d Days of Exercise per Week 1 day 2018 Minutes of Exercise per Session 30 min 06/10/2018 Comments No Sex and Gender Information Value Date Recorded Sex Assigned at Not on file Legal Sex Female 3:55 PM QUALITY IMPROVEMENT ENGINEER Gender Identity Female 09/08/2019 3:47 PM CDT Sexual Orientation Straight 09/08/2019 3: 47 PM CDT Occupation Industry Job Start Date Job End Date teacher Not on file Not on file Not on file Last Filed Vital Signs Vital Sign Reading Time Taken Comments Blood Pressure 113/70 08/23/2021 10:46 AM CDT Pulse 82 08/23/2021 10:46 AM CDT Temperature 36.1 C (97 F) 08/23/2021 10:46 AM CDT Respiratory Rate 18 08/23/2021 10:46 AM CDT Oxygen Saturation 98% 08/23/2021 10:46 AM CDT Inhaled Oxygen Concentration - - Weight 108 kg (238 lb) 01/22/2024 3:32 PM QUALITY IMPROVEMENT ENGINEER Height 172.7 cm (5' 8 ) 01/22/2024 3:32 PM QUALITY IMPROVEMENT ENGINEER Body Mass Index 36.19 01/22/2024 3:32 PM QUALITY IMPROVEMENT ENGINEER Plan of Treatment Not on file Insurance [facility] CHOICE PLUS Member Subscriber Plan / Payer (Ef fective 2016-Present) Name:April Cruz Relation to Subscriber:Self Name:April Cruz Payer ID:[id number] ([facility]) Type:[facility] HMO/PPO Address: [address] CHOICE PLUS [facility] CHOICE PLUS Member Subscriber Plan / Payer ( fective 2016-Present) Name:April Cruz Relation to Subscriber:Self Name:April Cruz Payer ID:[id number] ([facility]) Type:[facility] HMO/PPO Address: [address] CHOICE PLUS [facility] CHOICE PLUS [facility] CHOICE PLUS [facility] Care Teams Campaign Fundraiser Relationship Specialty Start Date End Date Padmini Castano MD PCP - General 08/10/08 Christopher Thacker MD [address] [facility] [address] Consulting Physician Pain Management 08/23/21
--- OUTSIDE RECORDS SUMMARY | 2024-06-14 08:05 | XMS_ITS | Clinical Summary ---
Author Organization [facility] Address [address] [place] [address] Care Team Providers Care Corporate Webmaster Name Role Phone Padmini Castano MD Primary Care Provider [phone] Christopher Thacker MD Unavailable Allergies No known [...] w/r/t gut microbiome. Referred to ADA and [employer] websites for additional information on topics including glycemic index/carbohydrate choices, protein sources. Consider metformin, GLP-1 RA. Mixed stress and urge urinary incontinence 08/20 Assessment & Plan (08/04/2019 12:50 PM CDT): Discussed potential for improvement and/or reduced progression with weight loss. Non-toxic multinodular goiter 06/26/2013 Overview (05/17/2016): NONTOX MULTINODUL GOITER Surgical History Surgery Date Site/Laterality Comments NO PAST SURGERIES TOE SURGERY FOOT SURGERY Medical History Medical History Date Comments Disorder of thyroid Thyroid dise ase Hypercholesteremia Osteoarthritis Anemia Lumbar facet arthropathy 03/01/2021 Severe multilevel Anterolisthesis of lumbar spine 03/01/2021 Grade 1 L5 on S1 Protrusion of lumbar intervertebral disc BMI 40.0-44.9, adult (HCC) 03/01/2021 Family History Medical History Relation Name Comments Hyperlipidemia Brother Cancer Father Prostate cancer Father overweight Father Arthritis Mother Hyperlipidemia Mother overweight Mother Hypothyroidism Other Family histor y of Hypothyroidism; Relation Name Status Comments Brother Father Mother Alive Other Social History Tobacco Use Types Packs/Day Years [...] on file Legal Sex Female 3:55 PM FELLING MACHINE OPERATOR Gender Identity Female 09/08/2019 3:47 PM CDT Sexual Orientation Straight 09/08/2019 3: 47 PM CDT Occupation Industry Job Start Date Job End Date teacher Not on file Not on file Not on file Obstetrics History Para Term AB IAB SAB Ectopic Multiple Livin g Live Births 3 2 2 1 1 2 2 Date Outcome GA Total Labor Labor/2nd/3rd Weight Sex Type Anes PTL Leticia A1 A5 Name Clin 1995 SAB Vag-S pont Demise 1996 Term Vag-S pont Living 2000 Term Vag-S pont Living Last Filed Vital Signs Vital Sign Reading Time Taken Comments Blood Pressure 113/70 08/23/2021 10:46 AM CDT Pulse 82 08/23/2021 10:46 AM CDT Temperature 36.1 C (97 F) 08/23/2021 10:46 AM CDT Respiratory Rate 18 08/23/2021 10:46 AM CDT Oxygen Saturation 98% 08/23/2021 10:46 AM CDT Inhaled Oxygen Concentration - - Weight 108 kg (238 lb) 01/22/2024 3:32 PM FELLING MACHINE OPERATOR Height 172.7 cm (5' 8 ) 01/22/2024 3:32 PM FELLING MACHINE OPERATOR Body Mass Index 36.19 01/22/2024 3:32 PM FELLING MACHINE OPERATOR Plan of Treatment Health Maintenance Due Date Last Done Comments Breast Cancer Screening-Mammogram 1965 Cervical Cancer Screening 1965 Colon Cancer Screening-Colonoscopy 1965 Depression Screening 1965 Hepatitis C Screening 1965 Hepatitis B Screening 08/14/1983 Regular Well Visit/Exam 18-64 08/14/1983 Zoster Vaccine (1 of 2) 08/14/2015 Influenza Vaccine (Season Ended) 2024 12/04/2018, 12/03/2017, 12/07/2014 DTaP/Tdap/Td Vaccine (2 - Td or Tdap) 12/07/2024 12/07/2014 Pneumococcal vaccine <65 Aged Out 12/07/2014 No longer eligible based on patient's age to complete this topic Insurance [facility] CHOICE PLUS [facility] HMO/PPO Address: [facility] [address] CHOICE PLUS [facility] HMO/PPO Address: [address] [place] [address] [facility] CHOICE PLUS [facility] HMO/PPO Address: [address] CHOICE PLUS [facility] HMO/PPO Address: [address] [place] [address] [facility] CHOICE PLUS [facility] HMO/PPO Address: [address] CHOICE PLUS [facility] HMO/PPO Address: [address] Care Teams Corporate Webmaster Relationship Specialty Start Date End Date Padmini Castano MD PCP - General 08/10/08 Christopher Thacker MD [address] [facility] [place] [address] Consulting Physician Pain Management 08/23/21
== END 2024-06-14 07:57 | disposition home or self-care (01) ==
PROVIDERS: PCP Family Medicine; Visit Provider Internal Medicine Gastroenterology
DX: R93.2 Abnormal findings on diagnostic imaging of liver and biliary tract (principal); D18.03 Hemangioma of intra-abdominal structures; K86.2 Cyst of pancreas
CPT/HCPCS: 74183; A9577

== ENCOUNTER 2024-08-31 09:29 | Outpatient (CLI) | payer OTHER, SELFPAY ==
--- OUTSIDE RECORDS SUMMARY | 2024-08-31 09:33 | XMS_ITS | Referral Summary ---
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 Referred to ADA and [employer] 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 Gender Identity Female 09/08/2019 3:47 PM CDT [...] 108 kg (238 lb) 01/22/2024 3:32 PM MARINE STRUCTURAL WELDER Height 172.7 cm (5' 8) 01/22/2024 3:32 PM MARINE STRUCTURAL WELDER Body Mass Index 36.19 01/22/2024 3:32 PM MARINE STRUCTURAL WELDER Plan of Treatment Not on file Insurance [facility] H[facility]PPO Address: [address] [facility]/PPO Address: [place] [address] [facility] H[facility]/PPO Address: [address] [facility] H[facility]/PPO Address: [address] [address] [place] [address] [facility] H[facility]/PPO Address: [address] [address] [place] [address] [facility] H[facility]/PPO Address: [address] [address] [place] [address] [employer] [employer] Care Teams Intake Worker Relationship Specialty Start Date End Date Padmini Castano MD PCP - General 08/10/08 Christopher Thacker MD [address] [facility] [address] Consulting Physician Pain Management 08/23/21
--- OUTSIDE RECORDS SUMMARY | 2024-08-31 09:33 | XMS_ITS | Clinical Summary ---
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 Gender Identity Not on file Sexual Orientation Not on file Plan of Treatment Health Maintenance Due Date Last Done Comments Hepatitis C Virus (HCV) Screening 1965 Mammogram 1965 TdaP Immunization 1965 Hepatitis B Immunization (1 of 3 - 19+ 3-dose series) 1984 Pap Smear 1986 Cervical Cancer Screening (CCS) 08/14/1995 HPV/Cotest 08/14/1995 Cologuard 2010 Immunochemical Fecal Occult Blood 2010 Pneumococcal Immunization (5 0+ years) (1 of 1 - PCV) 08/14/2015 Zoster Immunization (1 of 2) 08/14/2015 SARS-COV-2 Immunization (1 - 2023- season) 2023 Influenza Immunization (#1) 2024 Colonoscopy 07/05/2025 07/06/2015 Colorectal Cancer Screening 07/05/2025 Respiratory Syncytial Virus (RSV) Immunization (Adult) (1 - 1-dose 75+ series) 2040 Human Papillomavirus (HPV) Immunization Aged Out No longer eligible b ased on patient's age to complete this topic Meningococcal Immunization (ACWY) Aged Out No longer [...] Recently Relevant to Health Maintenance Care Teams Puppet Developer Relationship Specialty Start Date End Date Padmini Castano MD [address] [place] [address] PCP - General Family Medicine 07/17/15
--- OUTSIDE RECORDS SUMMARY | 2024-08-31 09:33 | XMS_ITS | Clinical Summary ---
Author Organization [facility] [employer] Address [address] [place] [address] Care Team Providers Care Knit Goods Washer Name Role Phone Padmini Castano MD Primary Care Provider [phone] Christopher Thacker MD Unavailable Allergies No known [...] w/r/t gut microbiome. 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 Gender Identity Female 09/08/2019 3:47 PM CDT [...] 108 kg (238 lb) 01/22/2024 3:32 PM ENGINE TESTER Height 172.7 cm (5' 8) 01/22/2024 3:32 PM ENGINE TESTER Body Mass Index 36.19 01/22/2024 3:32 PM ENGINE TESTER Plan of Treatment Health Maintenance Due Date Last Done Comments Breast Cancer Screening-Mammogram 1965 Cervical Cancer Screening 1965 Colon Cancer Screening-Colonoscopy 1965 Depression Screening 1965 Hepatitis C Screening 1965 Hepatitis B Screening 08/14/1983 Regular Well Visit/Exam 18-64 08/14/1983 Zoster Vaccine (1 of 2) 08/14/2015 Influenza Vaccine (#1) 2024 9, 12/03/2017, 12/07/2014 DTaP/Tdap/Td Vaccine (2 - Td or Tdap) 12/07/2024 12/07/2014 Pneumococcal vaccine <65 Aged Out 12/07/2014 No longer eligible based on patient's age to complete this topic Insurance [facility] CHOICE PLUS [facility] CHOICE PLUS Member Subscriber Plan / Payer (Ef fective 2016-Present) Name:April Cruz Relation to Subscriber:Self Name:April Cruz Payer ID:[id number] (NA) Type:[facility] HMO/PPO Address: [address] CHOICE PLUS Member Subscriber Plan / Payer (Ef fective 2018-Present) Name:April Cruz Relation to Subscriber:Spouse Name:FRANCO CRUZ Date of :1962 (Home) Address: [address] [place] [address] Payer ID:[id number] (NA) Type:[facility] HMO/PPO Address: [address] [facility] CHOICE PLUS [place] [id number] [facility] CHOICE PLUS Care Teams Knit Goods Washer Relationship Specialty Start Date End Date Padmini Castano MD PCP - General 08/10/08 Christopher Thacker MD [address] [facility] [address] Consulting Physician Pain Management 08/23/21
--- NOTE | 2024-08-31 09:48 | ECHO_ITS ---
Patient Info Name: April Gonzalez Age: 59 years : 1965 Gender: Female Ht: 68 in Wt: 249 lbs BSA: 2.38 m2 HR: 76 bpm BP: 145 / 92 mmHg Technical Quality: Good Exam Date: 08/31/2024 9:59 AM Patient Status: O Admit Date: 08/31/2024 Exam Type: CA echo doppler color flow Complete two-dimensional, color flow and Doppler transthoracic echocardiogram is performed. Forepart Rasper: Gloria Arellano Attending Provider: Nahun Cobos DO Summary 1. Complete two-dimensional, color flow and Doppler transthoracic echocardiogram is performed. 2. Left ventricular chamber dimension is normal. 3. Left ventricular systolic function is normal, estimated at 65-70. 4. The left ventricular diastolic function is grade I diastolic dysfunction. 5. E/e' 9 is minimally elevated. 6. Left atrial chamber dimension is mildly enlarged. 7. The aortic valve is bicuspid. 8. There is moderate aortic valve sclerosis. 9. There is mild to moderate aortic valve stenosis with a peak velocity of 344 cm/s, mean gradient of 27 mmHg, and aortic valve area of 1.3 cm2. 10. There is mild aortic valve regurgitation. 11. There is trace tricuspid valve regurgitation. 12. No pulmonary hypertension, estimated pulmonary arterial systolic pressure is 32 mmHg. 13. There is trace pulmonic regurgitation. Left Ventricle E/e' 9 is minimally elevated. Left ventricular chamber dimension is normal. Left ventricular systolic function is normal, estimated at 65-70. The left ventricular diastolic function is grade I diastolic dysfunction. Right Ventricle Right ventricular chamber dimension is normal. Right ventricular systolic function is normal and with normal TAPSE 2.0 cm. Left Atria Left atrial chamber dimension is mildly enlarged. Right Atria Right atrial chamber dimension is normal. Aortic Valve The aortic valve is bicuspid. There is moderate aortic valve sclerosis. There is mild to moderate aortic valve stenosis with a peak velocity of 344 cm/s, mean gradient of 27 mmHg, and aortic valve area of 1.3 cm2. There is mild aortic valve regurgitation. Pulmonic Valve There is trace pulmonic regurgitation. Mitral Valve There is no mitral valve stenosis. There is no mitral valve regurgitation. Tricuspid Valve There is trace tricuspid valve regurgitation. No pulmonary hypertension, estimated pulmonary arterial systolic pressure is 32 mmHg. Pericardium/Pleural There is no pericardial effusion. Inferior Vena Cava Normal inferior vena cava with >50% collapse upon inspiration consistent with normal right atrial pressure, 5 mmHg. Aorta The aortic root size at the sinus of Valsalva is normal. Left Ventricular Outflow Tract Name Value Normal LVOT 2D LVOT Diameter 2.0 cm LVOT Doppler LVOT Peak Velocity 130 cm/s LVOT Peak Gradient 5 mmHg LVOT Mean Gradient 4 mmHg LVOT VTI 32 cm LVOT VTI/AV VTI Ratio 0.4 LVOT Stroke Volume 105 ml LVOT CO 7.2 l/min LVOT CI 3.0 l/min/m2 Pulmonic Valve Name Value Normal RVOT Doppler RVOT Peak Velocity 66 cm/s RVOT Peak Gradient 2 mmHg PV Doppler PV Peak Velocity 76 cm/s PV Peak Gradient 2 mmHg Mitral Valve Name Value Normal MV Diastolic Function MV E Peak Velocity 66 cm/s MV A Peak Velocity 76 cm/s MV E/A 0.9 MV Decel Time (PW) 206 ms MV Annular TDI MV E/e' (Septal) 12.3 MV E/e' (Lateral) 7.9 MV E/e' (Average) 10.1 Tricuspid Valve Name Value Normal TV Regurgitation Doppler TR Peak Velocity 258 cm/s TR Peak Gradient 27 mmHg Estimated PAP/RSVP RA Pressure 5 mmHg <=5 PA Systolic Pressure 32 mmHg <36 RV Systolic Pressure 32 mmHg <36 Aortic Valve Name Value Normal AV Doppler AV Peak Velocity 344 cm/s AV Peak Gradient 42 mmHg AV Mean Gradient 27 mmHg AV VTI 80 cm AV Area (Cont Eq VTI) 1.3 cm2 >=3.0 AV Area (Cont Eq Tashi) 1.2 cm2 AV DI (Tashi) 0.38 AV Regurgitation 2D LVOT Area 3.3 cm2 Ventricles Name Value Normal LV Dimensions 2D/MM IVS Diastolic Thickness (2D) 1.1 cm 0.6-1.0 LVID Diastole (2D) 4.7 cm 3.8-5.2 LVIW Diastolic Thickness (2D) 1.3 cm 0.6-0.9 LVID Systole (2D) 2.9 cm 2.2-3.5 LVOT Diameter 2.0 cm LV Mass (2D Cubed) 207.11 g 67.00-162.00 LV Mass Index (2D Cubed) 87 g/m2 43-95 Relative Wall Thickness (2D) 0.54 <=0.42 LV Fractional Shortening/Ejection Fraction 2D/MM LV Fractional Shortening (2D) 39 % 27-45 LV EF (2D Teichholz) 69 % LV Diastolic Volume (4C MOD) 114 ml LV EF (4C MOD) 55 % LV Diastolic Volume (2C MOD) 86 ml LV EF (2C MOD) 51 % LV Diastolic Volume (BP MOD) 100 ml 46-106 LV Diastolic Volume Index (BP MOD) 42 ml/m2 29-61 LV Systolic Volume (BP MOD) 49 ml 14-42 LV Systolic Volume Index (BP MOD) 21 ml/m2 8-24 LV EF (BP MOD) 51 % 54-74 LV Diastolic Length (4C) 7.4 cm LV Systolic Length (4C) 6.8 cm LV Stroke Volume (4C MOD) 62 ml Atria Name Value Normal LA Dimensions LA Volume (4C A-L) 48 ml LA Volume (BP A-L) 59 ml RA Dimensions RA Systolic Major Schlater Length (4C) 5.8 cm 2.2-2.8 RA Area (4C) 17.1 cm2 <=18.0 Report Signatures
== END 2024-08-31 09:30 | disposition home or self-care (01) ==
LOC: ANHCARD 09:30
PROVIDERS: PCP Family Medicine; Visit Provider Internal Medicine Cardiovascular Disease
DX: R93.1 Abnormal findings on diagnostic imaging of heart and coronary circulation (principal); I35.0 Nonrheumatic aortic (valve) stenosis
CPT/HCPCS: 93306

== ENCOUNTER 2025-01-03 15:58 | Outpatient (CLI) | payer OTHER, SELFPAY ==
--- NOTE | ~2025-01-03 | MM_ITS ---
EXAMINATION: MM screening betty BI w varsha HISTORY: Screening TECHNIQUE: Craniocaudal and mediolateral oblique 3-D tomosynthesis images were obtained and synthetic 2-D images were generated. CAD analysis was submitted and interpreted. COMPARISON: Comparison to multiple prior studies sequentially, with oldest reviewed study dated 04/11/2015. BREAST PARENCHYMAL COMPOSITION: Not Dense. The breasts are almost entirely fatty. FINDINGS: There is no evidence of suspicious mass, calcification, or architectural distortion to suggest malignancy in either breast. There has been no suspicious interval change. IMPRESSION: 1. No mammographic evidence of malignancy. 2. Recommend routine screening mammography in one year. BI-RADS Category 1: Negative Reviewed, dictated and finalized at location O. LAB TECHNOLOGIST
== END 2025-01-03 15:59 | disposition home or self-care (01) ==
LOC: MICIMG 16:02
PROVIDERS: PCP Student in an Organized Health Care Education/Training Program; Visit Provider Student in an Organized Health Care Education/Training Program
DX: Z12.31 Encounter for screening mammogram for malignant neoplasm of breast (principal)
CPT/HCPCS: 77063; 77067